=== PATIENT | male | born 1950 | race Caucasian/White ===

== ENCOUNTER 2019-08-05 17:42 | Inpatient (IN) | payer MEDICARE, MEDICAID ==
[~2019-08-05] VITALS: Ht 175.3 cm; Wt 71.7 kg
[2019-08-05] MEDS ORDERED: SODIUM CHLORIDE 0.9% 1000ML BAG (SEPSIS BOLUS) IV ONE (18:00)
[2019-08-05] MEDS ORDERED: ACETAMINOPHEN 650MG SUPP ONE (18:00)
[2019-08-05] MEDS ORDERED: PIPERACILLIN/TAZ 3.375G PREMIX 50 ML IV ONE (18:00)
[2019-08-05] MEDS ORDERED: VANCOMYCIN 1 G PREMIX 200 ML IV ONE (18:00)
[2019-08-05 18:10] LABS: MEAN CORPUSCULAR HEMOGLOBIN 27.3 pg (28.0-32.0); MEAN CORPUSCULAR VOLUME 83.5 fL (80.0-94.0); MEAN PLATELET VOLUME 8.6 fl (7.4-10.4); PLATELET 219 x1000/uL (130-400); RED CELL DISTRIBUTION WIDTH 15.9 % (11.6-14.6)
[2019-08-05 18:15] LABS: CHLORIDE 107 mEq/L (98-107)
[2019-08-05 18:18] LABS: INR 1.1; PROTHROMBIN TIME 11.3 sec (9.6-11.0)
[2019-08-05 18:53] LABS: PLATELET ESTIMATE NORMAL
[2019-08-05 19:26] LABS: CLARITY URINE CLOUDY (CLEAR); COLOR URINE YELLOW (YELLOW); KETONES URINE NEGATIVE (NEGATIVE); LEUKOCYTE ESTERASE URINE 3+ (NEGATIVE); NITRITE URINE NEGATIVE (NEGATIVE); OCCULT BLOOD URINE 2+ (NEGATIVE); PH URINE 6.5 (4.5-8.0); PROTEIN URINE 2+ (NEGATIVE)
[2019-08-05] MEDS ORDERED: ACETAMINOPHEN 500MG TABLET PO NR (22:30)
[2019-08-05] MEDS ORDERED: DIPHENHYDRAMINE 50MG/ML VIAL IV PRN (23:15)
[2019-08-05] MEDS ORDERED: MAGNESIUM/ALUMINUM HYDROXIDE/SIMETHICONE 30ML UDC PO PRN (23:15)
[2019-08-05] MEDS ORDERED: GUAIFENESIN 200MG/10ML SUGAR FREE UDC PO PRN (23:15)
[2019-08-05] MEDS ORDERED: ACETAMINOPHEN 650MG/20.3ML UDC GT PRN (23:15)
[2019-08-05] MEDS ORDERED: ACETAMINOPHEN 650MG SUPP PR PRN (23:15)
[2019-08-05] MEDS ORDERED: PIPERACILLIN/TAZOBACTAM 3.375 G in DEXT 5% WATER 100 ML IV SCH (23:15)
[2019-08-05] MEDS ORDERED: CLONIDINE 0.1MG TABLET PO PRN (23:15)
[2019-08-05] MEDS ORDERED: ACETAMINOPHEN 325MG TABLET PO PRN ×2 (23:15)
[2019-08-05] MEDS ORDERED: DEXTROSE 50% WATER 50ML SYRINGE IV PRN (23:45)
[2019-08-06] MEDS ORDERED: PIPERACILLIN/TAZ 3.375G PREMIX 50 ML IV SCH ×4 (05:00→14:00)
[2019-08-06] MEDS: INSULIN LISPRO 100 UNITS/ML SUBCUT SCH ×4 (08:20→21:00)
[2019-08-06] MEDS: ENOXAPARIN 40MG/0.4ML SYR SUBCUT SCH (09:00)
[2019-08-06] MEDS: BLOOD SUGAR DIAGNOSTIC STRIP TEST SCH ×4 (09:34→21:59)
[2019-08-06] MEDS ORDERED: PIPERACILLIN/TAZOBACTAM 3.375 G in DEXT 5% WATER 100 ML IV SCH (10:00)
[2019-08-06 13:41] VITALS: BP 115/73
[2019-08-06 14:00] VITALS: BP 115/73
[2019-08-06 15:23] LABS: BASOPHILS % 0.3 % (0.0-2.0); EOSINOPHILS % 0.4 % (0.0-5.0); HEMATOCRIT. 41.3 % (42.0-52.0); HEMOGLOBIN. 13.6 g/dL (14.0-18.0); LYMPHOCYTES % 7.3 % (20.0-50.0); MEAN CORPUSCULAR HEMOGLOBIN 27.7 pg (28.0-32.0); MEAN CORPUSCULAR VOLUME 84.3 fL (80.0-94.0); MEAN PLATELET VOLUME 8.9 fl (7.4-10.4); MONOCYTES % 3.2 % (2.0-8.0); NEUTROPHILS % 88.8 % (40.0-76.0); PLATELET 177 x1000/uL (130-400); RED CELL DISTRIBUTION WIDTH 15.6 % (11.6-14.6)
[2019-08-06 15:25] LABS: BASOPHILS % 0.2 % (0.0-2.0); EOSINOPHILS % 0.4 % (0.0-5.0); HEMATOCRIT. 40.8 % (42.0-52.0); HEMOGLOBIN. 13.5 g/dL (14.0-18.0); LYMPHOCYTES % 7.6 % (20.0-50.0); MEAN CORPUSCULAR HEMOGLOBIN 27.8 pg (28.0-32.0); MEAN CORPUSCULAR VOLUME 83.8 fL (80.0-94.0); NEUTROPHILS % 88.8 % (40.0-76.0); PLATELET 185 x1000/uL (130-400); RED BLOOD CELL COUNT 4.87 mill/uL (4.7-6.1); RED CELL DISTRIBUTION WIDTH 15.7 % (11.6-14.6)
[2019-08-06 15:26] LABS: CHLORIDE 109 mEq/L (98-107)
[2019-08-06 15:27] LABS: CHLORIDE 109 mEq/L (98-107)
[2019-08-06 15:36] LABS: LDL CHOLESTEROL 73 mg/dL (5-100)
[2019-08-06 15:38] LABS: HDL CHOLESTEROL 37 mg/dL (40-59)
[2019-08-06] MEDS ORDERED: ACET650T37 PO (15:57)
[2019-08-06] MEDS ORDERED: POLY17PO28 PO (16:17)
[2019-08-06] MEDS ORDERED: LEVE500T19 PO (16:20)
[2019-08-06] MEDS ORDERED: DOCU100T PO (16:23)
[2019-08-06] MEDS: PIPERACILLIN/TAZOBACTAM 3.375 G in DEXT 5% WATER 100 ML IV SCH (17:32)
[2019-08-06] MEDS: FAMOTIDINE 20MG/2ML VIAL IV SCH (17:33)
[2019-08-06] MEDS: SODIUM CHLORIDE 0.9% 1,000 ML IV SCH (17:33)
[2019-08-06] MEDS: TAMSULOSIN HCL 0.4MG SR CAPSULE PO SCH (17:33)
[2019-08-06 20:00] VITALS: BP 119/74
[2019-08-06] MEDS ORDERED: VANCOMYCIN 1,750 MG in DEXT 5% WATER 250 ML IV NR (20:00)
[2019-08-06] MEDS: LEVETIRACETAM 500MG TABLET PO SCH (21:59)
[2019-08-07] VITALS: BP 125/66
[2019-08-07] MEDS: PIPERACILLIN/TAZOBACTAM 3.375 G in DEXT 5% WATER 100 ML IV SCH ×2 (00:47→05:59)
[2019-08-07 04:00] VITALS: BP 111/72
[2019-08-07] MEDS: SODIUM CHLORIDE 0.9% 1,000 ML IV SCH ×2 (05:59→17:52)
[2019-08-07] MEDS: BLOOD SUGAR DIAGNOSTIC STRIP TEST SCH ×4 (06:49→21:00)
[2019-08-07] MEDS: INSULIN LISPRO 100 UNITS/ML SUBCUT SCH ×4 (07:50→21:00)
[2019-08-07] MEDS: TAMSULOSIN HCL 0.4MG SR CAPSULE PO SCH (08:46)
[2019-08-07] MEDS: ENOXAPARIN 40MG/0.4ML SYR SUBCUT SCH (08:47)
[2019-08-07] MEDS: FAMOTIDINE 20MG/2ML VIAL IV SCH (08:47)
[2019-08-07] MEDS: LEVETIRACETAM 500MG TABLET PO SCH ×2 (08:47→22:17)
[2019-08-07] MEDS ORDERED: DOCUSATE SODIUM 100MG CAPSULE PO PRN (09:30)
[2019-08-07] MEDS: VANCOMYCIN 1250MG in DEXTROSE 5% WATER 250ML IV SCH (10:10)
[2019-08-07] MEDS: CEFAZOLIN 1000MG PREMIX 50 ML IV SCH ×2 (13:45→22:17)
[2019-08-07 15:51] VITALS: BP 103/79
[2019-08-07 20:00] VITALS: BP 113/86
[2019-08-08] MEDS: VANCOMYCIN 1250MG in DEXTROSE 5% WATER 250ML IV SCH ×2 (01:30→09:00)
[2019-08-08 04:00] VITALS: BP 137/85
[2019-08-08] MEDS: CEFAZOLIN 1000MG PREMIX 50 ML IV SCH (05:42)
[2019-08-08] MEDS: BLOOD SUGAR DIAGNOSTIC STRIP TEST SCH ×2 (06:23→12:20)
[2019-08-08 07:20] LABS: BASOPHILS % 0.5 % (0.0-2.0); HEMOGLOBIN. 13.6 g/dL (14.0-18.0); LYMPHOCYTES % 19.8 % (20.0-50.0); MEAN CORPUSCULAR HEMOGLOBIN 28.3 pg (28.0-32.0); MEAN CORPUSCULAR VOLUME 82.9 fL (80.0-94.0); MEAN PLATELET VOLUME 8.8 fl (7.4-10.4); MONOCYTES % 9.4 % (2.0-8.0); NEUTROPHILS % 65.3 % (40.0-76.0); PLATELET 198 x1000/uL (130-400); RED BLOOD CELL COUNT 4.82 mill/uL (4.7-6.1)
[2019-08-08] MEDS: INSULIN LISPRO 100 UNITS/ML SUBCUT SCH ×2 (07:41→12:25)
[2019-08-08 08:00] VITALS: BP 130/85
[2019-08-08] MEDS: SODIUM CHLORIDE 0.9% 1,000 ML IV SCH (08:00)
[2019-08-08 08:13] LABS: CHLORIDE 110 mEq/L (98-107)
[2019-08-08 08:20] LABS: PHOSPHORUS 2.7 mg/dL (2.5-4.9)
[2019-08-08] MEDS ORDERED: LEVO500T2 MT (08:29)
[2019-08-08] MEDS ORDERED: TAMS-11 PO (08:29)
[2019-08-08] MEDS ORDERED: FAMOTIDINE 20MG TABLET PO SCH (09:00)
[2019-08-08] MEDS ORDERED: POTASSIUM CHLORIDE 20MEQ TABLET SR PO SCH (09:00)
[2019-08-08] MEDS: ENOXAPARIN 40MG/0.4ML SYR SUBCUT SCH (09:00)
[2019-08-08] MEDS: TAMSULOSIN HCL 0.4MG SR CAPSULE PO SCH (09:01)
[2019-08-08] MEDS: LEVETIRACETAM 500MG TABLET PO SCH (09:01)
[2019-08-08 11:28] VITALS: BP 129/83
[2019-08-08 11:53] VITALS: BP 129/83
== END 2019-08-08 12:00 | DRG 871 ==
LOC: ER 17:42 → 6WST 19:28 → EDBEDREQ 19:52 → EDBEDREQSVC 21:22 → ENRESERV 08-06 11:32
PROVIDERS: ADMIT Family Medicine; ATTEND Family Medicine
DX: A41.51 Sepsis due to Escherichia coli [E. coli] (principal); G93.41 Metabolic encephalopathy; N39.0 Urinary tract infection, site not specified; E44.1 Mild protein-calorie malnutrition; G81.94 Hemiplegia, unspecified affecting left nondominant side; I10 Essential (primary) hypertension; E11.9 Type 2 diabetes mellitus without complications; Z86.73 Personal history of transient ischemic attack (TIA), and cerebral infarction without residual deficits; B96.20 Unspecified Escherichia coli [E. coli] as the cause of diseases classified elsewhere; R41.82 Altered mental status, unspecified
CPT/HCPCS: 36415; 71045; 80053; 80061; 80202; 81003; 82962; 83605; 83735; 84100; 84145; 84484; 85025; 87077; 87186; 93005; 96365; 97162; 99291; J0690; J1200; J1650; J2543; J3370; J3490; J7030; J7060